=== PATIENT | female | born 1965 | race African-American/Black ===

== ENCOUNTER 2024-04-01 15:27 | Emergency (ER) | payer MEDICARE, BC, SELFPAY ==
[2024-04-01 15:28] VITALS: BP 143/88; PULSE 73; RESP 16; TEMP 36.7; O2SAT 98; BMI 35.5
--- NOTE | 2024-04-01 15:44 | HMH.EDGENADL ---
Discharge Plan Disposition Patient Disposition: Home, Self-Care Condition: Good Prescriptions Prescriptions: New ketorolac 10 mg tablet 10 mg PO Q8H PRN (Reason: pain) 3 Days Qty: 12 0RF prochlorperazine maleate [Compazine] 5 mg tablet 5 mg PO Q8H PRN (Reason: nausea and vomiting) Qty: 12 0RF Referrals Follow up/Referrals: Provider,Referral, MD [Primary Care Provider] - See instructions Activity Restrictions/Add. Instructions Additional Instructions/Restrictions: You were evaluated in the emergency department today. At this time, you are negative for COVID and flu but we feel you likely do have a viral syndrome based on your constellation of symptoms. Your labs and CT scan are reassuring. Please follow-up closely with your primary care provider for reassessment. 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 You may also take Tylenol every 4-6 hours. Do not take ibuprofen or other NSAIDs with Toradol. Return to the emergency department right away for new or worsening symptoms Clinical Impressions Clinical Impression: Headache, Acute viral syndrome Stand Alone Forms Stand Alone Forms: Work/School Release Instructions Patient Instructions: DI for Viral Syndrome, DI for Headache Print Language Print Language: Greenlandic Discharge ED Provider: Arabella Pino General Adult HPI General Chief complaint: Upper Respiratory Infection Stated complaint: headache chills sweats Time Seen by Provider: 04/01/24 15:32 Mode of Arrival: Ambulatory Source of Information: Parent(s) Limitations: No Limitations Description of Symptoms (Recalled from ER Triage Doc. by RN): Reports chills, headache and body ahes since Monday. History of Present Illness HPI narrative: This patient is a 58-year-old female with a history of hypertension presenting to the emergency department for evaluation with concern for headaches, chills, body aches, and excessive thirst for 3 days. She states that she thinks she might have COVID. She denies any vision changes, numbness, tingling, unilateral weakness, neck pain/stiffness, meningismus, or other concerns. She also denies any chest pain, shortness of breath, cough, abdominal pain, vomiting, changes in bowel movements. She does note that she has had no appetite on review of systems. Related Data Previous Rx's ?Medication ?Instructions ?Recorded ketorolac 10 mg tablet 10 mg PO Q8H PRN pain 3 days #12 04/01/24 tabs prochlorperazine maleate 5 mg 5 mg PO Q8H PRN nausea and 04/01/24 tablet (Compazine) vomiting #12 tabs Allergies Allergy/AdvReac Type Severity Reaction Status Date / Time Penicillins Allergy Unknown Verified 04/01/24 15:37 allergy reaction tramadol Allergy Unknown Verified 04/01/24 15:37 allergy reaction PFSH PFS Disclaimer: The information contained in this section may have been updated after the patient was seen, as this information can be updated by other users. Social History Smoking Status: Current every day smoker alcohol intake: never current occupational status: employed Travel in the last 8 weeks: None ROS Obtained: Yes All systems reviewed & no additional complaints except as documented Physical Exam General General appearance: alert and in no apparent distress Head Head exam: atraumatic and normocephalic Eye Eye exam: Present normal appearance, PERRL and EOMI ENT ENT exam: Present normal exam, normal oropharynx, mucous membranes moist and normal external ear exam Neck Neck exam: Present normal inspection, full ROM and trachea midline; Absent tenderness Chest Chest inspection: Present normal inspection and symmetric chest wall rise; Absent tenderness Respiratory Respiratory exam: Present normal lung sounds bilaterally; Absent respiratory distress, wheezes, stridor or accessory muscle use Cardiovascular Cardiovascular exam: Present regular rate and normal rhythm Abdominal Exam Abdominal exam: Present soft; Absent distention, tenderness or guarding Extremities Exam Extremities exam: Present normal inspection, full ROM and normal capillary refill; Absent tenderness or edema Back Exam Back exam: Present normal inspection and full ROM; Absent tenderness Neurological Exam Neurological exam: Present alert, oriented X3, CN II-XII intact and normal gait; Absent motor sensory deficit Psychiatric Psychiatric exam: Present normal affect and normal mood Skin Skin exam: Present warm and dry Medical Decision Making Medical Records Medical records reviewed: Yes I reviewed the patient's medical records. Screening: Per USPSTF and CDC recommendations, given the prevalence of disease in our region, it is our hospital?s policy to screen for HIV and viral Hepatitis for all patients aged 18 and over and those with ongoing risk factors. Pa Inquiry Pt receiving controlled substance: No Vital Signs: 04/01/24 15:28 04/01/24 16:00 04/01/24 16:31 Temperature 98.0 F Temperature Source Oral Pulse Rate 67 66 Pulse Rate [Radial] 73 Respiratory Rate 16 16 16 Blood Pressure 130/82 120/70 Blood Pressure [Right Arm] 143/88 H Blood Pressure Mean 98 86 Blood Pressure Mean [Right Arm] 106 Blood Pressure Source [Right Arm] Automatic Cuff Blood Pressure Position [Right Arm] Sitting 02 Sat by Pulse Oximetry 98 95 96 Oxygen Delivery Method Room Air 04/01/24 17:00 04/01/24 17:23 Temperature Temperature Source Pulse Rate 65 61 Pulse Rate [Radial] Respiratory Rate Blood Pressure 133/76 127/52 L Blood Pressure [Right Arm] Blood Pressure Mean Blood Pressure Mean [Right Arm] Blood Pressure Source [Right Arm] Blood Pressure Position [Right Arm] 02 Sat by Pulse Oximetry 96 97 Oxygen Delivery Method Room Air Nasal Cannula Lab Data Lab results reviewed: Yes I reviewed the patient's lab results. Lab Results 04/01/24 15:39: SARS-CoV-2 (PCR) Not detected, Influenza A Untype (PCR) Not detected, Influenza Type B (PCR) Not detected 04/01/24 16:17: WBC 4.6 L, RBC 4.18 L, Hgb 12.9, Hct 36.7 L, MCV 87.8, MCH 30.8, MCHC 35.1, RDW 14.2, Plt Count 250, MPV 8.7, Neut % (Auto) 65.3, Lymph % (Auto) 26.1, Hendricks % (Auto) 6.3, Eos % (Auto) 1.1, Baso % (Auto) 1.3, Neut # (Auto) 3.0, Lymph # (Auto) 1.2, Hendricks # (Auto) 0.3, Eos # (Auto) 0.1, Baso # (Auto) 0.1, Sodium 137, Potassium 3.4 L, Chloride 107, Carbon Dioxide 22, Anion Gap 11.4, BUN 14, Creatinine 0.90, Estimated Creat Clear 105, Estimated GFR 64, Est GFR ( Amer) 77, Glucose 95, Calcium 9.5, Total Bilirubin 0.7, AST 29, ALT 20, Alkaline Phosphatase 114, Total Protein 8.4 H, Albumin 4.4, Globulin 4.0 H, Albumin/Globulin Ratio 1.1 04/01/24 16:17 04/01/24 16:17 Orders (Tests/Meds): ED MEDICATIONS Discontinued Medications Generic Name Dose Route Start Last Admin Trade Name Neema PRN Reason Stop Dose Admin Acetaminophen 1,000 mg 04/01/24 15:43 04/01/24 15:53 Acetaminophen 500mg Tab PO 04/01/24 15:44 1,000 mg ONCE ONE Administration Dexamethasone Sodium Phosphate 10 mg 04/01/24 15:43 04/01/24 15:53 Dexamethasone 4mg/Ml 1ml Vial IV 04/01/24 15:44 10 mg ONCE ONE Administration Diphenhydramine HCl 25 mg 04/01/24 15:43 04/01/24 15:54 Diphenhydramine 50mg/Ml Vial IV 04/01/24 15:44 25 mg ONCE ONE Administration Ketorolac Tromethamine 15 mg 04/01/24 15:43 04/01/24 15:54 Ketorolac 30mg/Ml Vial IV 04/01/24 15:44 15 mg ONCE ONE Administration Ketorolac Tromethamine 15 mg 04/01/24 17:03 04/01/24 17:20 Ketorolac 30mg/Ml Vial IV 04/01/24 17:04 15 mg ONCE ONE Administration Metoclopramide HCl 5 mg 04/01/24 15:43 04/01/24 15:54 Metoclopramide Hcl 10mg/2ml Vial IVP 04/01/24 15:44 5 mg ONCE ONE Administration Potassium Chloride 40 meq 04/01/24 16:46 04/01/24 16:49 Potassium Chloride 20meq Tab PO 04/01/24 16:47 40 meq ONCE ONE Administration Prochlorperazine Edisylate 5 mg 04/01/24 17:01 04/01/24 17:19 Prochlorperazine 10mg/2ml Vial IV 04/01/24 17:02 5 mg ONCE ONE Administration ORDERS Category Date Time Status CT head/brain wo con Stat Cat Scan 04/01/24 17:01 Completed CBC w/Auto Diff [Complete Blood Count Auto Diff] Stat Lab 04/01/24 16:17 Completed CMP [Comprehensive Metabolic Panel] Stat Lab 04/01/24 16:17 Completed Rapid PCR Covid and Flu A/B Stat Lab 04/01/24 15:39 Completed Medical Decision Narrative: In summary, this patient is a 58-year-old female presenting to the Emergency Department for evaluation of headache, chills, body aches, poor appetite, and excessive thirst. Differential diagnoses considered include but are not limited to viral syndrome, migraine, tension headache, electrolyte derangements, dehydration. Ruling out the most morbid conditions drove assessment. It should be noted patient's history includes hypertension which is not at goal therapy. This complicates all aspects of care by increasing patient's risk for morbidity. On exam, the patient is sitting upright in the stretcher in no acute distress with reassuring vital signs on cardiac telemetry. She is neurologically intact and exam is overall reassuring. She has no meningismus. I favor infectious etiology based on her constellation of symptoms, specifically viral syndrome. Workup included CBC, CMP, viral swab. Patient was given IV Toradol, dexamethasone, Benadryl, Reglan, and oral Tylenol for symptomatic improvement of headache. She is drinking oral fluids so no IV fluids were given at this time given fluid shortage. Labs demonstrated very mild hypokalemia and mild leukopenia. Oral replacement of potassium was ordered. Labs are otherwise reassuring with no significant hyponatremia, electrolyte derangements, or other concerns. She is negative for COVID and flu. On reassessment, she feels little bit better but does still have a headache. She is still neurologically intact with no meningismus. Vitals remain normal on cardiac telemetry. After shared decision-making, decision was made to order CT scan of the head without contrast to evaluate for large space-occupying lesion given her persistent headache. Doubt this given reassuring exam, but will obtain scan out of an abundance of precaution. She was then given IV compazine. I independently interpreted CT scan prior to the radiologist read and noted no obvious large space-occupying lesion. Please see their read for final interpretation. Patient had great improvement on later reassessment. She is tolerating oral intake without difficulty. Workup is been reassuring. Radiology noted concerns for possible sinusitis, however the patient does not have any sort of nasal congestion, pressure, or rhinorrhea. She advises that she is feeling better and she does have PCP follow-up arranged for tomorrow. Given this, I feel that she is appropriate for discharge home. I prescribed her Toradol and Compazine to have at home as needed for breakthrough symptoms. She was given strict return precautions and instructions for close follow-up. She was discharged after all questions were answered Critical Care Critical Care Time Critical Care Time: No
[2024-04-01 15:45] LABS: Coronavirus 19, PCR Not Detected (NotDetected); Influenza A, PCR Not Detected (NotDetected); Influenza B, PCR Not Detected (NotDetected)
[2024-04-01] MEDS: ACETAMINOPHEN 500MG TAB 1000 MG PO (15:53)
[2024-04-01] MEDS: DEXAMETHASONE 4MG/ML 1ML VIAL 10 MG IV (15:53)
[2024-04-01] MEDS: diphenhydrAMINE 50MG/ML VIAL 25 MG IV (15:54)
[2024-04-01] MEDS: METOCLOPRAMIDE HCL 10MG/2ML VIAL 5 MG IVP (15:54)
[2024-04-01] MEDS: KETOROLAC 30MG/ML VIAL 15 MG IV ×2 (15:54→17:20)
[2024-04-01 16:00] VITALS: BP 130/82; PULSE 67; RESP 16; O2SAT 95
[2024-04-01 16:29] LABS: Albumin Level 4.4 g/dl (3.5-5.0); Chloride 107 mmol/L (98-107); Sodium 137 mmol/L (136-145)
[2024-04-01 16:30] LABS: Potassium 3.4 mmoL/L (3.5-5.1)
[2024-04-01 16:31] VITALS: BP 120/70; PULSE 66; RESP 16; O2SAT 96
[2024-04-01 16:32] LABS: Alanine Aminotransferase 20 U/L (12-78); Anion Gap 11.4 mEq/L (5-15); Aspartate Amino Transferase 29 U/L (14-36); Basophils # 0.1 K/mm3 (0-0.2); Basophils % 1.3 % (0.1-2.0); Blood Urea Nitrogen 14 mg/dl (7-17); Carbon Dioxide 22 mmol/L (22.0-30.0); Creatinine Clearance Estimated 105 mL/min (50-200); Eosinophils # 0.1 K/mm3 (0.0-0.4); Eosinophils % 1.1 % (0.1-12.0); Estimated Glomerular Filt Rate 64 ml/min (>60); GFR (African American) 77 ML/MIN (>60); Hematocrit 36.7 % (37.0-47.0); Hemoglobin 12.9 g/dL (12.2-16.2); Lymphocytes # 1.2 K/mm3 (0.7-4.5); Lymphocytes % 26.1 % (10-50); Mean Corpuscular HGB Conc 35.1 g/dL (31.8-35.4); Mean Corpuscular Hemoglobin 30.8 pg (27.0-31.2); Mean Corpuscular Volume 87.8 fl (81-99); Mean Platelet Volume 8.7 fl (7.4-10.4); Monocytes # 0.3 K/mm3 (0.1-1.0); Monocytes % 6.3 % (1.7-9.3); Neutrophils % 65.3 % (37.0-80.0); Platelet Count 250 K/mm3 (142-424); Red Blood Count 4.18 M/mm3 (4.20-5.40); Red Cell Distribution Width 14.2 % (11.5-17.5); White Blood Count 4.6 K/mm3 (4.8-10.8)
[2024-04-01 16:33] LABS: Albumin/Globulin Ratio 1.1 (1.1-1.8); Alkaline Phosphatase 114 U/L (38-126); Bilirubin,Total 0.7 mg/dl (0.2-1.3); Calcium 9.5 mg/dl (8.4-10.2); Glucose 95 mg/dl (74-100); Total Protein,Serum 8.4 g/dl (6.3-8.2)
[2024-04-01] MEDS: POTASSIUM CHLORIDE 20MEQ TAB 40 MEQ PO (16:49)
[2024-04-01 17:00] VITALS: BP 133/76; PULSE 65; O2SAT 96
--- NOTE | 2024-04-01 17:01 | CT_ITS ---
PROCEDURE INFORMATION: Exam: CT Head Without Contrast Exam date and time: 04/01/2024 5:10 PM Age: 58 years old Clinical indication: Pain; Headache; Additional info: Intractable headache. Since Monday TECHNIQUE: Imaging protocol: Computed tomography of the head without contrast. Radiation optimization: All CT scans at this facility use at least one of these dose optimization techniques: automated exposure control; mA and/or kV adjustment per patient size (includes targeted exams where dose is matched to clinical indication); or iterative reconstruction. COMPARISON: No relevant prior studies available. FINDINGS: Brain: No evidence for acute intracranial hemorrhage, midline shift, or mass effect. No convincing evidence for acute transcortical infarct. Cerebral ventricles: No ventriculomegaly. Paranasal sinuses: There is moderate scattered sinus mucosal disease including circumferential thickening of the maxillary sinuses. Polypoid disease versus retention cyst in the left maxillary sinus. Polypoid disease versus retention cyst in the right maxillary sinus. Mastoid air cells: Visualized mastoid air cells are well aerated. Bones: Unremarkable. No acute fracture. Soft tissues: Unremarkable. IMPRESSION: 1. Moderate sinus mucosal disease. 2. No evidence for acute intracranial hemorrhage, midline shift, or mass effect. No convincing evidence for acute transcortical infarct.
[2024-04-01] MEDS: PROCHLORPERAZINE 10MG/2ML VIAL 5 MG IV (17:19)
[2024-04-01 17:23] VITALS: BP 127/52; PULSE 61; O2SAT 97
[2024-04-01 18:00] VITALS: BP 136/85; PULSE 62; RESP 16; TEMP 36.7; O2SAT 97
== END 2024-04-01 18:05 | disposition home or self-care (01) ==
PROVIDERS: Emergency Provider Emergency Medicine
DX: B34.9 Viral infection, unspecified (principal); R51.9 Headache, unspecified; R68.83 Chills (without fever); M79.10 Myalgia, unspecified site; R63.1 Polydipsia; R63.8 Other symptoms and signs concerning food and fluid intake
CPT/HCPCS: 70450; 80053; 85025; 87636; 96374; 96375; 99284; J0780; J1100; J1200; J1885; J2765

== ENCOUNTER 2024-07-27 14:48 | Emergency (ER) | payer MEDICARE, OTHER, SELFPAY ==
[2024-07-27] VITALS (8 sets, daily range): BP systolic 138–153; BP diastolic 70–97; PULSE 56–80; RESP 16–20; TEMP 36.8; O2SAT 89–99; BMI 32.3
--- NOTE | 2024-07-27 15:20 | HMH.EDGENADL ---
Discharge Plan Disposition Patient Disposition: Home, Self-Care Condition: Good Prescriptions Prescriptions: New cephalexin 500 mg capsule 500 mg PO Q6H 7 Days Qty: 28 0RF No Action ketorolac 10 mg tablet 10 mg PO Q8H PRN (Reason: pain) 3 Days Qty: 12 0RF prochlorperazine maleate [Compazine] 5 mg tablet 5 mg PO Q8H PRN (Reason: nausea and vomiting) Qty: 12 0RF Referrals Follow up/Referrals: Provider,Referral, MD [Primary Care Provider] - See instructions Activity Restrictions/Add. Instructions Additional Instructions/Restrictions: Take antibioticsbiotics as prescribed and use tart candies to express saliva. Return to emergency department if you develop fevers, worsening pain, difficulty swallowing or become concerned for your health Clinical Impressions Clinical Impression: Acute sialoadenitis Print Language Print Language: Samoan Discharge ED Provider: Khurram Delatorre Adult HPI General Chief complaint: Upper Respiratory Infection Stated complaint: swelling in jaw difficulting swallowing Time Seen by Provider: 07/27/24 15:18 Mode of Arrival: Ambulatory Source of Information: Patient and Significant Other Limitations: No Limitations Description of Symptoms (Recalled from ER Triage Doc. by RN): Patient presents ambulatory to triage. States she woke this morning with swelling to her neck and pain with swallowing. Edema noted to the right submandibular region and right neck. Denies N/V. Denies fevers. Denies diarrhea. States, I feel like my right ear keeps popping as well. Denies any visual disturbances. History of Present Illness HPI narrative: Patient is a 59-year-old female with history of hypertension, hyperlipidemia. She presents today due to neck swelling and pain in her right ear. She reports that this began upon waking up this morning. She denies any fevers, preceding illnesses cough congestion runny nose chest pain shortness of breath vomiting or diarrhea. She reports she has never had this swelling before. She is only had 1 skin abscess in the past. She reports some pain with swallowing, but no difficulty swallowing. Certainly no trouble breathing. No stridor. Related Data Previous Rx's ?Medication ?Instructions ?Recorded ketorolac 10 mg tablet 10 mg PO Q8H PRN pain 3 days #12 04/01/24 tabs prochlorperazine maleate 5 mg 5 mg PO Q8H PRN nausea and 04/01/24 tablet (Compazine) vomiting #12 tabs cephalexin 500 mg capsule 500 mg PO Q6H 7 days #28 caps 07/27/24 Allergies Allergy/AdvReac Type Severity Reaction Status Date / Time Penicillins Allergy Unknown Verified 04/01/24 15:37 allergy reaction tramadol Allergy Unknown Verified 04/01/24 15:37 allergy reaction PFSH PFS Disclaimer: The information contained in this section may have been updated after the patient was seen, as this information can be updated by other users. Social History (Updated 04/01/24 @ 18:00 by Arabella Pino DO) Smoking Status: Current every day smoker alcohol intake: never current occupational status: employed Travel in the last 8 weeks: None Have you lived/traveled outside [place] in past 30 days?: No Contact w/someone who lives/traveled outside [place] past 30 days?: No Exposure to someone with infectious disease in past 14 days?: No Do you have a fever (greater than 100.4 F or 38 C)?: No Have you tested positive for COVID-19: No Exposed to someone with COVID-19 in past 14 days?: No Do you have a sore throat?: No Do you have a cough?: No Do you have any weakness?: No Do you have any diarrhea?: No Are you experiencing any unusual bleeding?: No Do you have any muscle aches/pain?: No Do you have any abdominal pain?: No Are you experiencing loss of taste or smell?: No ROS Obtained: Yes All systems reviewed & no additional complaints except as documented Physical Exam General General appearance: alert and in no apparent distress Head Head exam: atraumatic and normocephalic Eye Eye exam: Present PERRL and EOMI ENT ENT exam: Present normal exam, normal oropharynx and mucous membranes moist Neck Neck exam: Present full ROM, trachea midline and tenderness (Submandibular swelling on the right, tender, slightly indurated.) Chest Chest inspection: Present symmetric chest wall rise Respiratory Respiratory exam: Present normal lung sounds bilaterally; Absent stridor Cardiovascular Cardiovascular exam: Present regular rate and normal rhythm Abdominal Exam Abdominal exam: Present soft; Absent distention or tenderness Extremities Exam Extremities exam: Present full ROM Neurological Exam Neurological exam: Present alert and oriented X3 Psychiatric Psychiatric exam: Present normal mood Skin Skin exam: Present warm and dry Medical Decision Making Medical Records Screening: Per USPSTF and CDC recommendations, given the prevalence of disease in our region, it is our hospital?s policy to screen for HIV and viral Hepatitis for all patients aged 18 and over and those with ongoing risk factors. Pa Inquiry Pt receiving controlled substance: No Vital Signs: 07/27/24 14:50 07/27/24 15:00 07/27/24 15:30 Temperature 98.3 F Temperature Source Oral Pulse Rate 57 L 57 L Pulse Rate [Radial] 56 L Respiratory Rate 16 Blood Pressure 150/90 H 147/90 H Blood Pressure [R Arm] 138/88 Blood Pressure Mean Blood Pressure Mean [R Arm] 104 Blood Pressure Source [R Arm] Automatic Cuff 02 Sat by Pulse Oximetry 99 99 89 L Oxygen Delivery Method Room Air Room Air Room Air 07/27/24 16:01 07/27/24 17:13 07/27/24 17:31 Temperature Temperature Source Pulse Rate 60 56 L Pulse Rate [Radial] Respiratory Rate Blood Pressure 153/89 H 141/95 H 151/95 H Blood Pressure [R Arm] Blood Pressure Mean 110 105 Blood Pressure Mean [R Arm] Blood Pressure Source [R Arm] 02 Sat by Pulse Oximetry 98 99 Oxygen Delivery Method Room Air Room Air 07/27/24 18:01 Temperature Temperature Source Pulse Rate Pulse Rate [Radial] Respiratory Rate Blood Pressure 141/97 H Blood Pressure [R Arm] Blood Pressure Mean 109 Blood Pressure Mean [R Arm] Blood Pressure Source [R Arm] 02 Sat by Pulse Oximetry Oxygen Delivery Method Lab Data Lab Results 07/27/24 16:10: WBC 5.4, RBC 4.31, Hgb 12.2, Hct 38.6, MCV 89.6, MCH 28.3, MCHC 31.6 L, RDW 14.7, Plt Count 284, MPV 10.4, Neut % (Auto) 42.3, Lymph % (Auto) 45.1, Dolores % (Auto) 7.6, Eos % (Auto) 3.7, Baso % (Auto) 1.1, Neut # (Auto) 2.3, Lymph # (Auto) 2.5, Dolores # (Auto) 0.4, Eos # (Auto) 0.2, Baso # (Auto) 0.1, Sodium 139, Potassium 4.4, Chloride 106, Carbon Dioxide 26, Anion Gap 11.4, BUN 27 H, Creatinine 1.10 H, Estimated Creat Clear 77, Estimated GFR 50 L, Est GFR ( Amer) 61, Glucose 92, Calcium 9.3, Total Bilirubin 0.2, AST 30, ALT 19, Alkaline Phosphatase 114, Total Protein 7.7, Albumin 4.4, Globulin 3.3 H, Albumin/Globulin Ratio 1.3, TSH 2.78, Free T4 1.05 07/27/24 16:10 07/27/24 16:10 Orders (Tests/Meds): ED MEDICATIONS Discontinued Medications Generic Name Dose Route Start Last Admin Trade Name Freq PRN Reason Stop Dose Admin Acetaminophen 1,000 mg 07/27/24 15:52 07/27/24 16:08 Acetaminophen 500mg Tab PO 07/27/24 15:53 1,000 mg ONCE ONE Administration Iopamidol 75 ml 07/27/24 17:01 07/27/24 17:07 Iopamidol-370 (76%);100ml Bottle IV 07/27/24 17:02 75 ml ONCE ONE Administration Sodium Chloride 10 ml 07/27/24 17:01 07/27/24 17:07 Sodium Chloride 0.9% 10ml Syr (Rad Only) IV 07/27/24 17:02 10 ml ONCE ONE Administration ORDERS Category Date Time Status CT soft tissue neck w con Stat Cat Scan 07/27/24 15:52 Completed Complete Blood Count Auto Diff Stat Lab 07/27/24 16:10 Completed Comprehensive Metabolic Panel Stat Lab 07/27/24 16:10 Completed Free T4 (Free Thyroxine) Stat Lab 07/27/24 16:10 Completed Thyroid Stimulating Hormone Stat Lab 07/27/24 16:10 Completed Medical Decision Narrative: In summary, this 59-year-old female presents to the emergency department today with neck swelling. On initial evaluation patient is afebrile, yet I was able to get distress but on exam 1 well-perfused full pulses in bilateral upper extremities. She denies any B symptoms, weight loss, history of cancer. She has this right submandibular swelling with some induration, most suspicious for abscess infected lymph node, but we will proceed with CT soft tissue neck to rule out deep space infection or thyroid nodule. Based on these concerns, I ordered CBC CMP TSH free T4 CT of the neck. Patient received Tylenol for treatment. Labs personally reviewed demonstrate Mildly elevation in creatinine 1.1, not acutely actionable. No leukocytosis no evidence of anemia. Thyroid studies within normal limits. CT imaging personally interpreted demonstrate acute sialoadenitis of the right submandibular gland,. On reassessment patient reported burning symptoms. Given sialadenitis, and overall well appearance, will discharge with Keflex and good return precautions.. Of note, social determinants of health include poor health literacy. At this time it was felt that the patient was safe to be discharged home. The patient was in agreement with this plan. The patient was given strict return precautions prior to being discharged from the emergency department. Critical Care Critical Care Time Critical Care Time: No
--- NOTE | 2024-07-27 15:46 | PC.NURSE ---
dr andrews at [facility]
--- NOTE | 2024-07-27 15:52 | CT_ITS ---
PROCEDURE INFORMATION: Exam: CT Neck With Contrast Exam date and time: 07/27/2024 5:05 PM Age: 59 years old Clinical indication: Mass, lump, or swelling in neck; Right; Additional info: R sided neck swelling TECHNIQUE: Imaging protocol: Computed tomography of the neck with contrast. Radiation optimization: All CT scans at this facility use at least one of these dose optimization techniques: automated exposure control; mA and/or kV adjustment per patient size (includes targeted exams where dose is matched to clinical indication); or iterative reconstruction. Contrast material: ISOVUE; Contrast volume: 75 ml; Contrast route: IV; COMPARISON: CT HEAD/BRAIN WO CON 04/01/2024 5:10 PM FINDINGS: Salivary glands: Submandibular gland on the right is enlarged with surrounding stranding concerning for sialadenitis. No salivary duct stones. Pharynx: Unremarkable. No significant tonsillar enlargement. Larynx: Unremarkable. Epiglottis is normal. Thyroid: Normal. No enlarged or calcified nodules. Trachea: Visualized trachea is unremarkable. Lungs: Unremarkable as visualized. Lymph nodes: Unremarkable. No lymphadenopathy. Bones/joints: Unremarkable. No acute fracture. Soft tissues: Soft tissue swelling involving the right side of the face in the submandibular region. Paranasal sinuses: There is chronic opacification of the right maxillary sinus and mucous retention cyst in the left maxillary sinus. IMPRESSION: Inflammation of the right submandibular gland reflecting sialadenitis. There is no salivary duct stones. No additional acute findings
[2024-07-27] MEDS: ACETAMINOPHEN 500MG TAB 1000 MG PO (16:08)
[2024-07-27 16:25] LABS: Basophils # 0.1 K/mm3 (0-0.2); Basophils % 1.1 % (0.1-2.0); Eosinophils # 0.2 K/mm3 (0.0-0.4); Eosinophils % 3.7 % (0.1-12.0); Hematocrit 38.6 % (37.0-47.0); Hemoglobin 12.2 g/dL (12.2-16.2); Lymphocytes # 2.5 K/mm3 (0.7-4.5); Lymphocytes % 45.1 % (10-50); Mean Corpuscular HGB Conc 31.6 g/dL (31.8-35.4); Mean Corpuscular Hemoglobin 28.3 pg (27.0-31.2); Mean Corpuscular Volume 89.6 fl (81-99); Mean Platelet Volume 10.4 fl (7.4-10.4); Monocytes # 0.4 K/mm3 (0.1-1.0); Monocytes % 7.6 % (1.7-9.3); Neutrophils # 2.3 K/mm3 (1.8-7.8); Neutrophils % 42.3 % (37.0-80.0); Platelet Count 284 K/mm3 (142-424); Red Blood Count 4.31 M/mm3 (4.20-5.40); Red Cell Distribution Width 14.7 % (11.5-17.5); White Blood Count 5.4 K/mm3 (4.8-10.8)
[2024-07-27 16:36] LABS: Albumin Level 4.4 g/dl (3.5-5.0); Chloride 106 mmol/L (98-107); Potassium 4.4 mmoL/L (3.5-5.1); Sodium 139 mmol/L (136-145)
[2024-07-27 16:39] LABS: Alanine Aminotransferase 19 U/L (12-78); Albumin/Globulin Ratio 1.3 (1.1-1.8); Alkaline Phosphatase 114 U/L (38-126); Anion Gap 11.4 mEq/L (5-15); Aspartate Amino Transferase 30 U/L (14-36); Bilirubin,Total 0.2 mg/dl (0.2-1.3); Blood Urea Nitrogen 27 mg/dl (7-17); Calcium 9.3 mg/dl (8.4-10.2); Carbon Dioxide 26 mmol/L (22.0-30.0); Creatinine Clearance Estimated 77 mL/min (50-200); Estimated Glomerular Filt Rate 50 ml/min (>60); GFR (African American) 61 ML/MIN (>60); Globulin 3.3 g/dL (1.3-3.2); Glucose 92 mg/dl (74-100); Total Protein,Serum 7.7 g/dl (6.3-8.2)
--- NOTE | 2024-07-27 16:52 | PC.NURSE ---
pt to ct
[2024-07-27 16:56] LABS: Free T4 (Free Thyroxine) 1.05 ng/dl (0.78-2.19)
[2024-07-27] MEDS: SODIUM CHLORIDE 0.9% 10ML SYR (RAD ONLY) 10 ML IV (17:07)
[2024-07-27] MEDS: IOPAMIDOL-370 (76%);100ML BOTTLE 75 ML IV (17:07)
[2024-07-27 17:10] LABS: Thyroid Stimulating Hormone 2.78 uIU/mL (0.465-4.68)
== END 2024-07-27 18:53 | disposition home or self-care (01) ==
PROVIDERS: Emergency Provider Emergency Medicine
DX: K11.21 Acute sialoadenitis (principal); R22.1 Localized swelling, mass and lump, neck; H92.01 Otalgia, right ear; Z72.0 Tobacco use
CPT/HCPCS: 70491; 80053; 84439; 84443; 85025; 99285; Q9967

== ENCOUNTER 2024-09-17 17:20 | Emergency (ER) | payer MEDICARE, OTHER, SELFPAY ==
[2024-09-17 17:43] VITALS: BP 158/80; PULSE 62; RESP 15; TEMP 36.8; O2SAT 98; BMI 32.3
[2024-09-17 18:06] LABS: Microscopic, Urine URINE MICROSCOPIC (MICROSCOPIC)
[2024-09-17 18:18] LABS: Blood, Urine Negative (Negative); Glucose,Urine (UA) Negative (Negative); Ketones,Urine TRACE (Negative); Leukocyte Esterase,Urine 1+ (Negative); Nitrate,Urine Negative (Negative); Protein,Urine Negative (Negative); Specific Gravity, Urine 1.025 (1.005-1.030); Urobilinogen,Urine 0.2 EU/dl (0.2)
--- NOTE | 2024-09-17 18:24 | HMH.EDGENADL ---
Discharge Plan Disposition Patient Disposition: Home, Self-Care Condition: Good Prescriptions Prescriptions: New cefdinir 300 mg capsule 300 mg PO BID 14 Days Qty: 28 0RF ondansetron 4 mg tablet,disintegrating 4 mg PO Q8H PRN (Reason: nausea and vomiting) 5 Days Qty: 10 0RF ketorolac 10 mg tablet 10 mg PO Q8H PRN (Reason: pain) 1 Days Qty: 14 0RF Discontinued ketorolac 10 mg tablet 10 mg PO Q8H PRN (Reason: pain) 3 Days Qty: 12 0RF prochlorperazine maleate [Compazine] 5 mg tablet 5 mg PO Q8H PRN (Reason: nausea and vomiting) Qty: 12 0RF cephalexin 500 mg capsule 500 mg PO Q6H 7 Days Qty: 28 0RF Referrals Follow up/Referrals: Provider,Referral, MD [Primary Care Provider] - See instructions Activity Restrictions/Add. Instructions Additional Instructions/Restrictions: As we discussed, based off your symptoms and the CT scan, it appears that you have a UTI that is spread to your kidney. I have prescribed a course of antibiotics as well as pain and nausea medication. On your CT scan, they did see fibroids and adrenal nodule that you should follow-up with your primary care doctor. Please return with any new or worsening symptoms. Clinical Impressions Clinical Impression: Pyelonephritis Instructions Patient Instructions: DI for Urinary Tract Infection (UTI), DI for Urinary Tract Infection in Children Print Language Print Language: Slovenian Discharge ED Provider: Rafi Albert Adult HPI General Chief complaint: Urogenital-Female Stated complaint: back pain Time Seen by Provider: 09/17/24 18:24 Mode of Arrival: Ambulatory Source of Information: Patient Description of Symptoms (Recalled from ER Triage Doc. by RN): pt [id number] for two days she has right sided flank pain that is sharp and aching. also burning with urination. History of Present Illness HPI narrative: Patient presents for evaluation of right-sided flank pain, gradual in onset, with associated dysuria, described as aching, throbbing, no trauma to the area. No abdominal pain. No nausea or vomiting. No fevers or chills or sick contacts or recent travel or syncope or palpitations. No known history of kidney stones. Please note that above description of symptoms, in this electronic medical record under categorization of recalled from ER triage doctor by RN are reflective of an initial nursing assessment, however, is not reflective of my full history and physical exam that was personally taken and clarified. Consequentially, this preceding description of symptoms, which may include the patient's categorized chief complaint in the EMR, do not reflect my personal clinical impression, and the ultimate description of history of present illness and patient stated complaints should be deferred to this section of the note. Unless stated otherwise or congruent with this section of the note, additional signs, symptoms, or incongruence should be interpreted as inaccurate with my clinical impression. Related Data Previous Rx's ?Medication ?Instructions ?Recorded cefdinir 300 mg capsule 300 mg PO BID 14 days #28 caps 09/17/24 ketorolac 10 mg tablet 10 mg PO Q8H PRN pain 1 day #14 09/17/24 tabs ondansetron 4 mg disintegrating 4 mg PO Q8H PRN nausea and 09/17/24 tablet vomiting 5 days #10 tabs Allergies Allergy/AdvReac Type Severity Reaction Status Date / Time Penicillins Allergy Unknown Verified 04/01/24 15:37 allergy reaction tramadol Allergy Unknown Verified 04/01/24 15:37 allergy reaction PFSH PFS Disclaimer: The information contained in this section may have been updated after the patient was seen, as this information can be updated by other users. Social History (Updated 04/01/24 @ 18:00 by Arabella Pino DO) Smoking Status: Current every day smoker alcohol intake: never current occupational status: employed Travel in the last 8 weeks: None Have you lived/traveled outside [place] in past 30 days?: No Contact w/someone who lives/traveled outside [place] past 30 days?: No Exposure to someone with infectious disease in past 14 days?: No Do you have a fever (greater than 100.4 F or 38 C)?: No Have you tested positive for COVID-19: No Exposed to someone with COVID-19 in past 14 days?: No Do you have a sore throat?: No Do you have a cough?: No Do you have any weakness?: No Do you have any diarrhea?: No Are you experiencing any unusual bleeding?: No Do you have any muscle aches/pain?: No Do you have any abdominal pain?: No Are you experiencing loss of taste or smell?: No ROS Obtained: Yes other As per HPI Physical Exam General General appearance: alert and in no apparent distress Head Head exam: atraumatic and normocephalic Eye Eye exam: Present normal appearance Neck Neck exam: Present normal inspection Chest Chest inspection: Present normal inspection and symmetric chest wall rise Respiratory Respiratory exam: Present normal lung sounds bilaterally; Absent respiratory distress Cardiovascular Cardiovascular exam: Present regular rate and normal rhythm Abdominal Exam Abdominal exam: Present soft Neurological Exam Neurological exam: Present alert and oriented X3 Psychiatric Psychiatric exam: Present normal affect and normal mood Skin Skin exam: Present warm and dry Other Other exam information: Right-sided flank pain, no midline tenderness Medical Decision Making Medical Records Medical records reviewed: Yes I reviewed the patient's medical records. Screening: Per USPSTF and CDC recommendations, given the prevalence of disease in our region, it is our hospital?s policy to screen for HIV and viral Hepatitis for all patients aged 18 and over and those with ongoing risk factors. Pa Inquiry Pt receiving controlled substance: No Vital Signs: 09/17/24 17:43 09/17/24 21:09 Temperature 98.3 F 98.4 F Temperature Source Oral Pulse Rate 87 Pulse Rate [Right] 62 Respiratory Rate 15 20 Blood Pressure 134/87 Blood Pressure [Right Arm] 158/80 H Blood Pressure Mean [Right Arm] 106 Blood Pressure Source [Right Arm] Automatic Cuff Blood Pressure Position [Right Arm] Sitting 02 Sat by Pulse Oximetry 98 Oxygen Delivery Method Room Air Lab Data Lab Results 09/17/24 16:37: Urine Color Dark yellow, Urine Appearance Slightly cloudy, Urine pH 6.0, Ur Specific [place] 1.025, Urine Protein Negative, Urine Glucose (UA) Negative, Urine Ketones Trace, Urine Blood Negative, Urine Nitrate Negative, Urine Bilirubin 1+ A, Urine Urobilinogen 0.2, Ur Leukocyte Esterase 1+ A, Urine RBC Occasional, Urine WBC 5-10, Ur Squamous Epith Cells 10-20, Urine Bacteria 1+, Urine Mucus 3+ 09/17/24 18:55: WBC 5.1, RBC 4.37, Hgb 12.7, Hct 38.4, MCV 87.9, MCH 29.1, MCHC 33.1, RDW 13.4, Plt Count 249, MPV 10.5 H, Neut % (Auto) 36.1 L, Lymph % (Auto) 49.5, [place] % (Auto) 8.7, Eos % (Auto) 4.1, Baso % (Auto) 1.4, Neut # (Auto) 1.8, Lymph # (Auto) 2.5, [place] # (Auto) 0.4, Eos # (Auto) 0.2, Baso # (Auto) 0.1, Sodium 139, Potassium 3.7, Chloride 108 H, Carbon Dioxide 25, Anion Gap 9.7, BUN 19 H, Creatinine 1.10 H, Estimated Creat Clear 77, Estimated GFR 50 L, Est GFR ( Amer) 61, Glucose 96, Calcium 9.5, Total Bilirubin 0.4, AST 28, ALT 16, Alkaline Phosphatase 98, Total Protein 7.7, Albumin 4.2, Globulin 3.5 H, Albumin/Globulin Ratio 1.2 09/17/24 18:58: HCV Ab VIN w/Rflx PCR Qn Negative, HIV Ag/Ab Combo Qual Negative 09/17/24 18:55 09/17/24 18:55 Orders (Tests/Meds): ED MEDICATIONS Discontinued Medications Generic Name Dose Route Start Last Admin Trade Name Freq PRN Reason Stop Dose Admin Ketorolac Tromethamine 15 mg 09/17/24 19:04 09/17/24 19:08 Ketorolac 30mg/Ml Vial IV 09/17/24 19:05 15 mg ONCE ONE Administration ORDERS Category Date Time Status CT abdomen pelvis wo con Stat Cat Scan 09/17/24 18:49 Completed CBC w/Auto Diff [Complete Blood Count Auto Diff] Stat Lab 09/17/24 18:55 Completed CMP [Comprehensive Metabolic Panel] Stat Lab 09/17/24 18:55 Completed HIV Combo Stat Lab 09/17/24 18:58 Completed Hepatitis C Ab Qual. W/ RFX Stat Lab 09/17/24 18:58 Completed UA [Urinalysis and Microscopic] Stat Lab 09/17/24 16:37 Completed Urine Culture Stat Micro 09/17/24 16:37 Received Medical Decision Narrative: Patient with history and exam per above presenting for evaluation of flank pain Diagnoses considered include cystitis, pyelonephritis, urolithiasis, referred pain, low clinical index of suspicion for acute vascular pathology given clinical stability, reassuring history with gradual onset, no other warning signs ED workup and treatment included: ED MEDICATIONS Discontinued Medications Generic Name Dose Route Start Last Admin Trade Name Freq PRN Reason Stop Dose Admin Ketorolac Tromethamine 15 mg 09/17/24 19:04 09/17/24 19:08 Ketorolac 30mg/Ml Vial IV 09/17/24 19:05 15 mg ONCE ONE Administration ORDERS Category Date Time Status CT abdomen pelvis wo con Stat Cat Scan 09/17/24 18:49 Completed CBC w/Auto Diff [Complete Blood Count Auto Diff] Stat Lab 09/17/24 18:55 Completed CMP [Comprehensive Metabolic Panel] Stat Lab 09/17/24 18:55 Completed HIV Combo Stat Lab 09/17/24 18:58 Completed Hepatitis C Ab Qual. W/ RFX Stat Lab 09/17/24 18:58 Completed UA [Urinalysis and Microscopic] Stat Lab 09/17/24 16:37 Completed Urine Culture Stat Micro 09/17/24 16:37 Received Labs were independently interpreted by me, significant for leukocyte Estrace positive on urinalysis, 10-20 squamous epithelial cells however pyuria and bacteriuria Imaging was independently visualized and interpreted by me, significant for several incidental findings which were communicated the patient including adrenal nodule Please refer to radiology report for full details. My clinical impression at this time is most consistent with pyelonephritis I discussed my clinical impression with patient and answered all questions. At this time, the evidence for any other entities in the differential is insufficient to warrant any further testing or ED observation. This was explained to the patient. The patient was advised that persistent or worsening symptoms require further evaluation. Critical Care Critical Care Time Critical Care Time: No
[2024-09-17 18:32] LABS: Appearance,Urine Slightly Cloudy (Clear); Bilirubin,Urine 1+ (Negative); Color,Urine Dark Yellow (Yellow)
--- NOTE | 2024-09-17 18:49 | CT_ITS ---
PROCEDURE INFORMATION: Exam: CT Abdomen And Pelvis Without Contrast Exam date and time: 09/17/2024 7:45 PM Age: 59 years old Clinical indication: Abdominal pain; Additional info: R>l flank pain TECHNIQUE: Imaging protocol: Computed tomography of the abdomen and pelvis without contrast. Radiation optimization: All CT scans at this facility use at least one of these dose optimization techniques: automated exposure control; mA and/or kV adjustment per patient size (includes targeted exams where dose is matched to clinical indication); or iterative reconstruction. COMPARISON: No relevant prior studies available. FINDINGS: Lungs: Nonspecific mild bibasilar streaky opacities suggest atelectasis or parenchymal scarring. Pleural spaces: There are no pleural effusions. Heart: The heart is mildly enlarged. There is no evidence of pericardial fluid collections. Liver: Evaluation of the liver is limited without contrast but the liver is within normal limits for this noncontrast study. Gallbladder and biliary ducts: The gallbladder is normal. Pancreas: Noncontrast images of the pancreas are within range of normal. Spleen: The spleen is normal. Adrenal glands: The right adrenal gland is normal. There is a focal hypodense nodule measuring 20 x 14 mm with internal Hounsfield units measuring -17 in the left adrenal gland, consistent in appearance with a benign adrenal adenoma. Kidneys and ureters: No hydroureter or ureteric stone disease. Noncontrast images of the kidneys appear overall within range of normal. Stomach and bowel: The stomach is normal. The duodenum is unremarkable. Lack of gastrointestinal contrast limits evaluation of bowel. There is no evidence of intestinal perforation or obstruction. The colon is normal. Unopacified loops of small bowel are within range of normal. Appendix: A normal appendix is identified. Intraperitoneal space: No evidence of intraperitoneal free air. No free fluid. Vasculature: There are a few benign phleboliths in the pelvis. The aorta and iliac arteries demonstrate moderate atherosclerotic calcification. Lymph nodes: No enlarged lymph nodes. Urinary bladder: The bladder is decompressed.. Reproductive: The uterus demonstrates a lobular contour with several rounded areas of stippled calcification consistent with multiple leiomyomas. A fundal fibroid measures approximately 4.6 x 3.5 cm. A posterior midbody fibroid measures approximately 5 x 4.5 cm. No adnexal cysts or masses are identified. Bones/joints: The thoracolumbar spine demonstrates mild degenerative changes at multiple levels. There is no evidence of acute fracture. There is slight anterior spondylolisthesis of L4 on L5. There are mild degenerative changes of the hip joints. There are mild degenerative changes of the symphyseal pubic joint. There are mild degenerative changes of the sacroiliac joints. Soft tissues: There is a tiny fat-containing umbilical hernia. Other findings: Evaluation is limited by the lack of intravenous and gastrointestinal contrast. IMPRESSION: 1. Focal hypodense nodule measuring 20 x 14 mm with internal Hounsfield units measuring -17 in the left adrenal gland, consistent in appearance with a benign adrenal adenoma. 2. Multiple uterine fibroids. COMMENTS: Consistent with the [employer]'s Incidental Findings Committee white paper (J Am Awilda Radiol 2017): For any incidental adrenal lesion greater than or equal to 1 cm but less than or equal to 4 cm classified in this report as benign, likely benign, or containing fat (including classification as an adenoma or myelolipoma), no follow-up imaging is recommended per consensus recommendations based on imaging criteria. Further lab evaluation could be pursued if warranted based on clinical findings.
[2024-09-17] MEDS: KETOROLAC 30MG/ML VIAL 15 MG IV (19:08)
[2024-09-17 19:10] LABS: Basophils # 0.1 K/mm3 (0-0.2); Basophils % 1.4 % (0.1-2.0); Eosinophils # 0.2 K/mm3 (0.0-0.4); Eosinophils % 4.1 % (0.1-12.0); Hematocrit 38.4 % (37.0-47.0); Hemoglobin 12.7 g/dL (12.2-16.2); Lymphocytes # 2.5 K/mm3 (0.7-4.5); Lymphocytes % 49.5 % (10-50); Mean Corpuscular HGB Conc 33.1 g/dL (31.8-35.4); Mean Corpuscular Hemoglobin 29.1 pg (27.0-31.2); Mean Corpuscular Volume 87.9 fl (81-99); Mean Platelet Volume 10.5 fl (7.4-10.4); Monocytes # 0.4 K/mm3 (0.1-1.0); Monocytes % 8.7 % (1.7-9.3); Neutrophils # 1.8 K/mm3 (1.8-7.8); Neutrophils % 36.1 % (37.0-80.0); Platelet Count 249 K/mm3 (142-424); Red Blood Count 4.37 M/mm3 (4.20-5.40); Red Cell Distribution Width 13.4 % (11.5-17.5); White Blood Count 5.1 K/mm3 (4.8-10.8)
[2024-09-17 19:19] LABS: Bacteria,Urine 1+ /lpf; RBC,Urine Occasional #/hpf (0-3)
[2024-09-17 19:20] LABS: Mucus,Urine 3+ /lpf
[2024-09-17 19:28] LABS: Albumin Level 4.2 g/dl (3.5-5.0); Chloride 108 mmol/L (98-107); Sodium 139 mmol/L (136-145)
[2024-09-17 19:29] LABS: Potassium 3.7 mmoL/L (3.5-5.1)
[2024-09-17 19:31] LABS: Alanine Aminotransferase 16 U/L (12-78); Albumin/Globulin Ratio 1.2 (1.1-1.8); Alkaline Phosphatase 98 U/L (38-126); Anion Gap 9.7 mEq/L (5-15); Aspartate Amino Transferase 28 U/L (14-36); Bilirubin,Total 0.4 mg/dl (0.2-1.3); Blood Urea Nitrogen 19 mg/dl (7-17); Carbon Dioxide 25 mmol/L (22.0-30.0); Creatinine Clearance Estimated 77 mL/min (50-200); Estimated Glomerular Filt Rate 50 ml/min (>60); GFR (African American) 61 ML/MIN (>60); Globulin 3.5 g/dL (1.3-3.2); Total Protein,Serum 7.7 g/dl (6.3-8.2)
[2024-09-17 19:32] LABS: Calcium 9.5 mg/dl (8.4-10.2); Glucose 96 mg/dl (74-100)
[2024-09-17 21:05] LABS: HIV Combo NEGATIVE (Negative)
[2024-09-17 21:09] VITALS: BP 134/87; PULSE 87; RESP 20; TEMP 36.9; O2SAT 98
[2024-09-17 21:13] LABS: Hepatitis C Ab Qual. W/ RFX NEGATIVE (Negative)
== END 2024-09-17 21:18 | disposition home or self-care (01) ==
PROVIDERS: Emergency Provider Emergency Medicine
DX: N10 Acute pyelonephritis (principal)
CPT/HCPCS: 74176; 80053; 81001; 85025; 86803; 87086; 87389; 96374; 99285; J1885